=== PATIENT | female | born 1970 | race Caucasian/White ===

== ENCOUNTER 2021-01-16 14:20 | Emergency (ER) | payer SELFPAY | END 2021-01-16 15:35 | disposition home or self-care (01) | LOC: MADERS 14:20 | DX: M72.2 Plantar fascial fibromatosis (principal); Z87.891 Personal history of nicotine dependence ==

== ENCOUNTER 2023-02-25 10:32 | Emergency (ER) | payer SELFPAY ==
[2023-02-25] MEDS ORDERED: Acetaminophen 500 MG TAB ONE (11:02)
[2023-02-25] MEDS ORDERED: Amoxicillin/Potassium Clav 875 MG TAB ONE (11:02)
[2023-02-25] MEDS ORDERED: Ibuprofen 800 MG TAB ONE (11:02)
== END 2023-02-25 11:07 | disposition home or self-care (01) ==
LOC: MADERS 10:32
DX: K08.89 Other specified disorders of teeth and supporting structures (principal); F17.290 Nicotine dependence, other tobacco product, uncomplicated
CPT/HCPCS: 99282

== ENCOUNTER 2023-03-17 08:16 | Emergency (ER) | payer SELFPAY | END 2023-03-17 09:15 | disposition home or self-care (01) | LOC: MADERS 08:16 | DX: K02.9 Dental caries, unspecified (principal); E66.9 Obesity, unspecified; F17.290 Nicotine dependence, other tobacco product, uncomplicated | CPT/HCPCS: 99282 ==

== ENCOUNTER 2024-04-19 15:25 | Outpatient (CLI) | payer OTHER | END 2024-04-19 15:26 | disposition home or self-care (01) | LOC: MADLAB 15:25 | PROVIDERS: ATTEND Nurse Practitioner Family | DX: K59.00 Constipation, unspecified (principal) | CPT/HCPCS: 74019 ==